=== PATIENT | female | born 2000 | race Caucasian/White ===

== ENCOUNTER 2020-11-28 10:07 | Emergency (ER) | payer OTHER ==
[~2020-11-28 10:07] MED LIST: PREDNISONE20 MG PO; PROVENTIL HFA6.7 GM INH; ZITHROMAX500 MG PO
[2020-11-28] MEDS ORDERED: INDERAL TAB 2020 MG PO (12:48)
== END 2020-11-28 13:15 | disposition home or self-care (01) ==
LOC: ER1 10:07
DX: R51.9 Headache, unspecified (principal); R11.2 Nausea with vomiting, unspecified; J45.909 Unspecified asthma, uncomplicated; Z87.820 Personal history of traumatic brain injury
CPT/HCPCS: 70450; 84703; 99284

== ENCOUNTER 2021-01-18 18:34 | Emergency (ER) | payer OTHER ==
[~2021-01-18 18:34] MED LIST changes: +INDERAL TAB 2020 MG PO
== END 2021-01-18 21:00 | disposition home or self-care (01) ==
LOC: ER1 18:34
DX: R51.9 Headache, unspecified (principal); J45.909 Unspecified asthma, uncomplicated; F17.210 Nicotine dependence, cigarettes, uncomplicated; Z86.73 Personal history of transient ischemic attack (TIA), and cerebral infarction without residual deficits; Z79.899 Other long term (current) drug therapy
CPT/HCPCS: 96374; 96375; 99283; J1885; J2405

== ENCOUNTER 2021-09-24 09:55 | Emergency (ER) | payer OTHER ==
[~2021-09-24 09:55] MED LIST changes: +IBUPROFEN600 MG PO
== END 2021-09-24 13:20 | disposition home or self-care (01) ==
LOC: ER1 09:55
DX: J06.9 Acute upper respiratory infection, unspecified (principal); Z20.822 Contact with and (suspected) exposure to COVID-19
CPT/HCPCS: 0240U; 71045; 99283